=== PATIENT | female | born 1995 | race Caucasian/White ===

== ENCOUNTER 2017-03-10 18:20 | Emergency (ER) | payer OTHER ==
[2017-03-10 18:26] VITALS: BP 110/58; PULSE 87; RESP 20; TEMP 98.1
--- NOTE | 2017-03-10 18:47 | ED ---
General Adult HPI - General Chief complaint: Recheck/Abnormal Lab/Rx Stated complaint: MED REFILL Time Seen by Provider: 03/10/17 18:38 Source: patient, RN notes reviewed Mode of arrival: ambulatory Limitations: no limitations - History of Present Illness Initial comments: 21 yo female presents to the ER with cc of needing a refill of a Prozac prescription. patient states she was released from [facility] and states she has run out of her Prozac and does not have follow up for another prescription. Patient denies any suicidal or homicidal ideation. She states just needs refill.Patient denies any recent fever, chills, shortness of breath, chest pain , back pain, abdominal pain, nausea vomiting, numbness or tingling, dysuria or hematuria, constipation or diarrhea, headaches or visual changes, or any other current symptoms. - Related Data Previous Rx's Medication Instructions Recorded FLUoxetine HCL [PROzac] 20 mg PO DAILY #30 cap 02/03/17 Melatonin 3 mg PO HS #30 tablet 02/03/17 Nicotine 21Mg/24Hr Patch [Habitrol] 1 patch TRANSDERM DAILY #30 patch 02/03/17 Allergies Allergy/AdvReac Type Severity Reaction Status Date / Time No Known Allergies Allergy Verified 03/10/17 18:26 Review of Systems ROS Statement: Those systems with pertinent positive or pertinent negative responses have been documented in the HPI. ROS Other: All systems not noted in ROS Statement are negative. Past Medical History Past Medical History: No Reported History History of Any Multi-Drug Resistant Organisms: None Reported Past Surgical History: No Surgical Hx Reported Past Anesthesia/Blood Transfusion Reactions: No Reported Reaction Past Psychological History: Depression Smoking Status: Current every day smoker Past Alcohol Use History: Occasional Past Drug Use History: Prescription Drug Abuse - Past Family History mother Family Medical History: Cancer Additional Family Medical History / Comment(s): esophageal cancer General Exam Limitations: no limitations General appearance: alert, in no apparent distress ENT exam: Present: normal exam, mucous membranes moist Neck exam: Present: normal inspection. Absent: tenderness, meningismus, lymphadenopathy Respiratory exam: Present: normal lung sounds bilaterally. Absent: respiratory distress, wheezes, rales, rhonchi, stridor Cardiovascular Exam: Present: regular rate, normal rhythm, normal heart sounds. Absent: systolic murmur, diastolic murmur, rubs, gallop, clicks Neurological exam: Present: alert, oriented X3 Psychiatric exam: Absent: homicidal ideation, suicidal ideation Skin exam: Present: warm, dry, intact, normal color. Absent: rash Course Vital Signs 03/10/17 18:24 Temperature 98.1 F Pulse Rate 87 Respiratory 20 Rate Blood Pressure 110/58 O2 Sat by Pulse 99 Oximetry Medical Decision Making - Medical Decision Making 21 yo female presents with cc of needing a Prozac prescription. This time we discussion follow-up with [facility] for her prescription. We did go over her discharge instructions from throughout. We discussed return parameters all questions. Patient stated she understood and she is agreement plan. She'll be discharged. Disposition Clinical Impression: Encounter for medication refill Disposition: HOME SELF-CARE Condition: Stable Instructions: Fluoxetine (By mouth) Additional Instructions: Please use medication as discussed. Please follow up with family doctor if symptoms have not improved over the next two days. Please return to the emergency room if your symptoms increase or worsen or for any other concerns. Referrals: Justin Morales MD [STAFF PHYSICIAN] - 1-2 days Time of Disposition: 19:21
== END 2017-03-10 19:20 | disposition home or self-care (01) ==
LOC: EC 18:20
DX: Z76.0 Encounter for issue of repeat prescription (principal); F17.200 Nicotine dependence, unspecified, uncomplicated
CPT/HCPCS: 99281

== ENCOUNTER 2017-07-24 13:42 | Inpatient (IN) | payer MEDICAID, OTHER ==
--- NOTE | 2017-07-24 14:12 | ED ---
General Adult HPI - General Chief complaint: Psychiatric Symptoms Stated complaint: Mental Health Eval Time Seen by Provider: 07/24/17 13:59 Source: patient, RN notes reviewed Mode of arrival: ambulatory Limitations: no limitations - History of Present Illness Initial comments: Patient 21-year-old female presented to the emergency room today with a chief complaint of suicidal ideation. Patient does admit that she is homeless. She states she does not feel that anyone wants to help her. She does admit that she 's feeling hopeless and wants it all to end. She does admit that she's had thoughts of running out in front of traffic or grabbing a rope and hanging yourself. Patient does admit that she's had thoughts of suicide in the past. She states she is post appreciated counselor. She denies any homicidal thoughts or plans. Denies any other physical complaints. Patient denies any recent fever, chills, shortness of breath, chest pain, back pain, abdominal pain , nausea or vomiting, numbness or tingling, headaches or visual changes, or any other complaints. - Related Data Home Medications Medication Instructions Recorded Confirmed No Known Home Medications [No 07/24/17 07/24/17 Known Home Medications] Allergies Allergy/AdvReac Type Severity Reaction Status Date / Time No Known Allergies Allergy Verified 07/24/17 13:58 Review of Systems ROS Statement: Those systems with pertinent positive or pertinent negative responses have been documented in the HPI. ROS Other: All systems not noted in ROS Statement are negative. Past Medical History Past Medical History: No Reported History History of Any Multi-Drug Resistant Organisms: None Reported Past Surgical History: No Surgical Hx Reported Past Anesthesia/Blood Transfusion Reactions: No Reported Reaction Past Psychological History: Depression Smoking Status: Current every day smoker Past Alcohol Use History: None Reported Past Drug Use History: Prescription Drug Abuse - Past Family History mother Family Medical History: Cancer Additional Family Medical History / Comment(s): esophageal cancer General Exam - General Exam Comments Initial Comments: General: The patient is awake and alert, in no distress, and does not appear acutely ill. Eye: Pupils are equal, round and reactive to light, extra-ocular movements are intact. No nystagmus. There is normal conjunctiva bilaterally. No signs of icterus. Ears, nose, mouth and throat: There are moist mucous membranes and no oral lesions. Neck: The neck is supple, there is no tenderness or JVD. Cardiovascular: There is a regular rate and rhythm. No murmur, rub or gallop is appreciated. Respiratory: Lungs are clear to auscultation, respirations are non-labored, breath sounds are equal. No wheezes, stridor, rales, or rhonchi. Musculoskeletal: Normal ROM, no tenderness. Strength 5/5. Sensation intact. Neurological: A&O x 3. CN II-XII intact, There are no obvious motor or sensory deficits. Coordination appears grossly intact. Speech is normal. Skin: Skin is warm and dry and no rashes or lesions are noted. Psychiatric: Cooperative Limitations: no limitations Course Vital Signs 07/24/17 07/24/17 07/24/17 13:54 14:21 15:12 Temperature 97.8 F Pulse Rate 67 Respiratory 18 19 19 Rate Blood Pressure 101/60 O2 Sat by Pulse 99 Oximetry Medical Decision Making - Medical Decision Making Patient has been seen by mental health here in emergency room. Patient will be admitted to the hospital as well as sign herself in. - Lab Data Lab Results 07/24/17 07/24/17 Range/Units 14:20 14:20 Urine HCG, Qual Not Detected (Not Detectd) Urine Opiates Screen Not Detected (NotDetected) Ur Oxycodone Screen Not Detected (NotDetected) Urine Methadone Screen Not Detected (NotDetected) Ur Propoxyphene Screen Not Detected (NotDetected) Ur Barbiturates Screen Not Detected (NotDetected) U Tricyclic Antidepress Not Detected (NotDetected) Ur Phencyclidine Scrn Not Detected (NotDetected) Ur Amphetamines Screen Not Detected (NotDetected) U Methamphetamines Scrn Not Detected (NotDetected) U Benzodiazepines Scrn Not Detected (NotDetected) Urine Cocaine Screen Not Detected (NotDetected) U Marijuana (THC) Screen Not Detected (NotDetected) Disposition Clinical Impression: Suicidal ideation Disposition: TRANSFER TO PSYCH HOSP/UNIT Condition: Stable Is patient prescribed a controlled substance at d/c from ED?: No Referrals: Justin Morales MD [Primary Care Provider] - 1-2 days Time of Disposition: 15:48
[2017-07-24 14:41] LABS: Amphetamine Screen,Urine Not Detected (NotDetected); Barbiturate Screen,Urine Not Detected (NotDetected); Benzodiazepines Screen,Urine Not Detected (NotDetected); Cocaine Screen,Urine Not Detected (NotDetected); Methadone Screen, Urine Not Detected (NotDetected); Opiate Screen,Urine Not Detected (NotDetected); Oxycodone Screen, Urine Not Detected (NotDetected); Phencyclidine Screen,Urine Not Detected (NotDetected); Tricyclic Antidepressant,Urine Not Detected (NotDetected); Urn Cannabinoid Scrn Not Detected (NotDetected)
[2017-07-24] MEDS ORDERED: ACETAMINOPHEN TAB 325 MG TAB PO PRN (16:24)
[2017-07-24] MEDS ORDERED: MAGNESIUM HYDROXIDE 2,400 MG/10 ML CUP PO PRN (16:24)
[2017-07-24] MEDS ORDERED: MAG HYDROX/AL HYDROX/SIMETH 30 ML CUP PO PRN (16:24)
[2017-07-24 16:32] LABS: Appearance,Urine Clear (Clear); Bilirubin,Urine Negative (Negative); Blood,Urine Negative (Negative); Color,Urine Colorless; Glucose,Urine (UA) Negative (Negative); Ketones,Urine Negative (Negative); Leukocyte Esterase,Urine Negative (Negative); Nitrite,Urine Negative (Negative); Protein,Urine Negative (Negative); Specific Gravity,Urine 1.006 (1.001-1.035); Urobilinogen,Urine <2.0 mg/dL (<2.0)
[2017-07-24] MEDS: NICOTINE 21MG/24HR PATCH TRANSDERM SCH (16:55)
[2017-07-25 08:08] LABS: Basophils % (A) 1 %; Eosinophils # (A) 0.2 k/uL (0-0.7); Eosinophils % (A) 4 %; HCT 37.1 % (34.0-46.0); HGB 12.1 gm/dL (11.4-16.0); Lymphocytes # (A) 2.6 k/uL (1.0-4.8); Lymphocytes % (A) 41 %; MCHC 32.7 g/dL (31.0-37.0); MCV 94.8 fL (80.0-100.0); Mean Platelet Volume 7.7; Monocytes # (A) 0.3 k/uL (0-1.0); Monocytes % (A) 5 %; Neutrophils # (A) 3.1 k/uL (1.3-7.7); Neutrophils % (A) 48 %; Platelet Count 162 k/uL (150-450); RBC 3.91 m/uL (3.80-5.40); RDW 12.4 % (11.5-15.5); WBC 6.3 k/uL (3.8-10.6)
[2017-07-25 08:24] LABS: ALT 37 U/L (9-52); AST 32 U/L (14-36); Albumin 3.8 g/dL (3.5-5.0); Alkaline Phosphatase 54 U/L (38-126); Anion Gap 12 mmol/L; Blood Urea Nitrogen 17 mg/dL (7-17); Calcium 9.1 mg/dL (8.4-10.2); Carbon Dioxide 25 mmol/L (22-30); Chloride 106 mmol/L (98-107); Glucose 82 mg/dL (74-99); Sodium 143 mmol/L (137-145); Total Bilirubin 0.3 mg/dL (0.2-1.3); Total Protein 6.4 g/dL (6.3-8.2)
[2017-07-25] MEDS: NICOTINE 21MG/24HR PATCH TRANSDERM SCH (09:20)
--- NOTE | 2017-07-25 09:44 | CONS ---
CONSULTATION CHIEF COMPLAINT: A 21-year-old white female suicidal ideation. She is homeless. She does not feel that anyone wants to help her. She tried to hang herself apparently or she has thought about hanging herself or running out in front of traffic. She had thoughts of suicide in the past. No shortness of breath, chest pain, back pain, abdominal pain, nausea, vomiting, tingling. MEDICATIONS: Home medications negative. ALLERGIES: Negative. REVIEW OF SYSTEMS: Fourteen point review of systems negative except for mentioned in HPI. PAST PSYCH HISTORY: Of depression. SOCIAL HISTORY: Current everyday smoker. No alcohol. No illicit drugs. FAMILY HISTORY: Mother with cancer, esophageal cancer. PHYSICAL EXAM: VITAL SIGNS: Vital signs stable, afebrile. CARDIOVASCULAR S1, S2. LUNGS: Clear. GI: Soft. HEMATOLOGY: Negative Homans. PSYCH: Fair mood and affect. NEUROLOGIC: Alert and orient x3. VITAL SIGNS: Temperature is 97.8, pulse 67, respiratory 16 to 18, blood pressure 101/69, O2 99%. Urine drug screen negative. ASSESSMENT: Suicidal ideation. Otherwise she is medically clear. She has no significant medical problems. She is on no medicines at home. MMODL / IJN: [id number] /
[2017-07-25] MEDS: FLUoxetine HCL 10 MG CAP PO SCH (14:55)
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
[2017-07-25] MEDS ORDERED: DIVALPROEX ER 250 MG TAB.ER.24H PO SCH (21:00)
[2017-07-26] MEDS: FLUoxetine HCL 10 MG CAP PO SCH (08:23)
[2017-07-26] MEDS: NICOTINE 21MG/24HR PATCH TRANSDERM SCH (08:23)
[2017-07-26 10:14] LABS: Basophils % (A) 1 %; Eosinophils # (A) 0.2 k/uL (0-0.7); Eosinophils % (A) 3 %; HCT 41.3 % (34.0-46.0); HGB 13.5 gm/dL (11.4-16.0); Lymphocytes % (A) 32 %; MCHC 32.8 g/dL (31.0-37.0); MCV 94.6 fL (80.0-100.0); Mean Platelet Volume 7.7; Monocytes # (A) 0.3 k/uL (0-1.0); Monocytes % (A) 5 %; Neutrophils # (A) 3.7 k/uL (1.3-7.7); Neutrophils % (A) 59 %; Platelet Count 187 k/uL (150-450); RBC 4.36 m/uL (3.80-5.40); RDW 12.1 % (11.5-15.5); WBC 6.3 k/uL (3.8-10.6)
[2017-07-26 10:26] LABS: ALT 41 U/L (9-52); AST 44 U/L (14-36); Albumin 4.6 g/dL (3.5-5.0); Alkaline Phosphatase 61 U/L (38-126); Anion Gap 13 mmol/L; Blood Urea Nitrogen 13 mg/dL (7-17); Calcium 9.9 mg/dL (8.4-10.2); Carbon Dioxide 29 mmol/L (22-30); Chloride 102 mmol/L (98-107); Glucose 76 mg/dL (74-99); Potassium 4.7 mmol/L (3.5-5.1); Sodium 144 mmol/L (137-145); Total Bilirubin 0.5 mg/dL (0.2-1.3); Total Protein 7.6 g/dL (6.3-8.2)
[2017-07-26] MEDS ORDERED: FLUoxetine HCL 10 MG CAP ONE ×2 (10:35→10:42)
--- NOTE | 2017-07-26 13:23 | P.PN ---
Subjective Progress Note Date: 07/26/17 Principal diagnosis: Major depressive disorder recurrent moderate, lack of adequate housing I reviewed the medical record, interviewed the patient and a treatment and in plan with the treatment team. She presented to the psychiatric unit on 07/25/17 with complaints of depression and anxiety. She described several stressors the most significant of which is that she is homeless. She was living with her boyfriend in an apartment until March when they were evicted. She gave a vague and somewhat convoluted explanation about the reason they were evicted from the apartment (something about another landlord-tenant repeatedly called the police about their behavior). Complicating the eviction was her quitting her job and her boyfriend losing his Social Security. They lived with various friends, in their car and in shelters. She feels rejected by her family because well not provide her with assistance or correction. Her primary complaint currently is anxiety that she attributed to the of her mother, lack of income and lack of housing. She denies suicidal ideation, plan or intent. She feels sad and hopeless and helpless but denied feeling worthless. She denied feeling guilty did not express delusions of guilt. She denied difficulties with sleep. The covering psychiatrist prescribed Prozac 10 mg daily and initiated a trial of Depakote. The patient complained of nausea following the first dose of Depakote and requested to discontinue the medication. Objective - Vital Signs Vital signs: Vital Signs Temp 97.8 F 07/26/17 06:25 Pulse 93 07/26/17 06:25 Resp 16 07/26/17 06:25 BP 99/54 07/26/17 06:25 Pulse Ox 100 07/24/17 16:30 Intake & Output 07/25/17 07/26/17 07/26/17 18:59 06:59 18:59 Weight 54.1 kg - Psychiatric Psychiatric Comment(s): She presented as a neatly groomed and casually dressed young female who was pleasant on approach. She made eye contact and attended to the interview. She had no distinguishing features or prominent physical abnormalities. She had a bright facial expression. She is alert and oriented to person, place and time. She showed no abnormality of psychomotor activity. Her speech was spontaneous with normal rate, rhythm and volume. Affect was anxious but stable and appropriate. She denied suicidal ideation or wishes. She denied homicidal ideation. She complained of feeling hopeless and helpless battery with regard to her housing status. She denied feeling worthless. She did not express phobias, ideas reference, paranoid ideation or delusional thoughts. Her thinking was concrete but her associations were coherent, logical and goal directed. She denied hallucinations and did not appear to be responding to internal stimuli. - Labs CBC & Chem 7: 07/26/17 09:55 07/26/17 09:55 Assessment and Plan (1) Suicidal ideation Current Visit: Yes Status: Acute Code(s): R45.851 - SUICIDAL IDEATIONS SNOMED Code(s): 6764520 (2) Depression Current Visit: No Status: Acute Code(s): F32.9 - MAJOR DEPRESSIVE DISORDER, SINGLE EPISODE, UNSPECIFIED SNOMED Code(s): 31249388 Plan: Continue inpatient psychiatric hospitalization due to persistent mood and anxiety symptoms and psychosocial issues. Discontinue Depakote and increase Prozac to 20 mg daily. Encourage participation in therapeutic groups and activities. brush worker to assist her placement. Encourage participation in therapeutic groups and activities. Evaluate clinical status response to treatment daily basis.
[2017-07-27] MEDS: FLUoxetine HCL 20 MG CAP PO SCH (09:21)
[2017-07-27] MEDS: NICOTINE 21MG/24HR PATCH TRANSDERM SCH (09:21)
--- NOTE | 2017-07-27 13:25 | P.PN ---
Subjective Progress Note Date: 07/27/17 Principal diagnosis: Major depressive disorder recurrent moderate, lack of adequate housing I reviewed the medical record, interviewed the patient and a treatment and in plan with the treatment team. She remains anxious about her health housing situation. She stated that the nursing home had open beds yesterday but she does not know their open bed status today. She denied suicidal ideation, plan or intent. She denied difficulties with sleep. Objective - Vital Signs Vital signs: Vital Signs Temp 97.7 F 07/27/17 06:32 Pulse 88 07/27/17 06:32 Resp 12 07/27/17 06:32 BP 95/51 07/27/17 06:32 Pulse Ox 100 07/24/17 16:30 - Psychiatric Psychiatric Comment(s): She presented as a neatly groomed and casually dressed young female who was pleasant on approach. She made eye contact and attended to the interview. She had no distinguishing features or prominent physical abnormalities. She had a bright facial expression. She is alert and oriented to person, place and time. She showed no abnormality of psychomotor activity. Her speech was spontaneous with normal rate, rhythm and volume. Affect was anxious but stable and appropriate. She denied suicidal ideation or wishes. She denied homicidal ideation. She complained of feeling hopeless and helpless battery with regard to her housing status. She denied feeling worthless. She did not express phobias, ideas reference, paranoid ideation or delusional thoughts. Her thinking was concrete but her associations were coherent, logical and goal directed. She denied hallucinations and did not appear to be responding to internal stimuli. - Labs CBC & Chem 7: 07/26/17 09:55 07/26/17 09:55 Assessment and Plan Assessment: She appears less depressed and anxious time of discharge. Housing and income remaining prominent problem. (1) Suicidal ideation Current Visit: Yes Status: Acute Code(s): R45.851 - SUICIDAL IDEATIONS SNOMED Code(s): 1406670 (2) Depression Current Visit: No Status: Acute Code(s): F32.9 - MAJOR DEPRESSIVE DISORDER, SINGLE EPISODE, UNSPECIFIED SNOMED Code(s): 40239432 Plan: Continue inpatient psychiatric hospitalization until the social workers able to secure safe and appropriate housing. Continue Prozac to 20 mg daily. Encourage participation in therapeutic groups and activities. Encourage participation in therapeutic groups and activities. Evaluate clinical status response to treatment daily basis.
[2017-07-28 06:18] VITALS: RESP 16; TEMP 98.1
[2017-07-28 07:36] VITALS: BP 88/55; PULSE 60
[2017-07-28] MEDS: NICOTINE 21MG/24HR PATCH TRANSDERM SCH (08:18)
[2017-07-28] MEDS: FLUoxetine HCL 20 MG CAP PO SCH (08:18)
--- NOTE | 2017-07-28 12:27 | P.DS ---
Providers Date of admission: 07/24/17 15:55 Attending physician: Justin Acuna MD Consults: 07/24/17 16:24 Consult Physician Routine Consulting Provider: Justin Morales Consult Reason/Comments: Follow up H & P Do you want consulting provider notified?: Yes Primary care physician: Justin Morales - Discharge Diagnosis(es) (1) Suicidal ideation Current Visit: Yes Status: Resolved Priority: Low (2) Depression Current Visit: No Status: Chronic Priority: Low Hospital Course: The patient is a 21-year-old single female who presented to the psychiatric unit voluntarily with complaints of depression and suicidal ideation. She describes several stressors contributing to the depression and suicidal ideation but the most significant of which is that she is homeless and has no income. She was living with her boyfriend in apartment until March when they were evicted. She complained that another resident made several false accusations against them resulting in the police coming to the apartment several times. Complicating the eviction and adding to her stress was quitting her job and her boyfriend losing his Social Security disability income. Since they lost the apartment they lived with various friends, in a car and in shelters. She feels rejected by her family because her brother refused to give her assistance or longterm. Her boyfriend was able to obtain a bed in a longterm but she was unsuccessful since the female shelters were full. We provided a comprehensive biopsychosocial assessment. The lending consultant correctional therapy director completed initial physical exam and medical history. The correctional therapy director made no medical diagnoses and made no medical recommendations. This is her second admission to the psychiatric unit. We resumed her antidepressant, fluoxetine, and was prescribed following her last discharge. She reported an improvement in mood with the fluoxetine and the services provided by staff during this admission. She dutifully called the female shelters during the hospital stay. She participated in therapeutic groups and activities. She posed no management problem and required no emergent medication for behavioral problems or disturbances. On the day of discharge she secured a bed at [facility]. Her plan is to remain in the longterm for the maximum 30 days, obtained a temporary job with a local [employer] 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 At the time of discharge she presented as a neatly groomed and casually dressed young female who was pleasant on approach, maintained eye contact and attended to the interview. She had no distinguishing features or prominent physical abnormalities. She had a bright facial expression. She was alert and oriented to person, place and time. She showed no abnormality of psychomotor activity. She had no abnormal movements. Her speech was spontaneous with normal rate, rhythm and volume. Affect was bright, stable and appropriate. She denied suicidal ideation or wishes. She denied homicidal ideation. She denied such depressive cognitions as hopelessness, helplessness and worthlessness. She did not express phobias, ideas reference, paranoid ideation or delusional thoughts. Her thinking was abstract and associations were coherent and logical. She denied hallucinations and did not appear to be responding to internal stimuli. Patient Condition at Discharge: Stable Plan - Discharge Summary Discharge Rx Participant: No New Discharge Prescriptions: New FLUoxetine HCL [PROzac] 20 mg PO DAILY #28 cap Nicotine 21Mg/24Hr Patch [Habitrol] 1 patch TRANSDERM DAILY #7 patch Discharge Medication List FLUoxetine HCL [PROzac] 20 mg PO DAILY #28 cap 07/28/17 [Rx] Nicotine 21Mg/24Hr Patch [Habitrol] 1 patch TRANSDERM DAILY #7 patch 07/28/17 [ Rx] Follow up Appointment(s)/Referral(s): [facility] [Outside] - As Needed (walk-in intake assessment on 07.29.17 between 8:30am and 3:00pm) Justin Morales MD [Primary Care Provider] - 1-2 days Discharge Disposition: HOME SELF-CARE
== END 2017-07-28 13:15 | disposition home or self-care (01) | DRG 885 ==
LOC: EC 13:42 → 3MHU 15:55
PROVIDERS: ADMIT Psychiatry & Neurology Psychiatry; ATTEND Psychiatry & Neurology Psychiatry
DX: F33.1 Major depressive disorder, recurrent, moderate (principal); F50.2 Bulimia nervosa; R45.851 Suicidal ideations; F17.200 Nicotine dependence, unspecified, uncomplicated; F41.9 Anxiety disorder, unspecified; Z59.0 Homelessness; Z79.899 Other long term (current) drug therapy; Z80.0 Family history of malignant neoplasm of digestive organs; Z68.21 Body mass index [BMI] 21.0-21.9, adult; Z63.4 Disappearance and death of family member; F15.11 Other stimulant abuse, in remission
CPT/HCPCS: 80053; 80306; 81003; 81025; 82075; 84443; 85025; 99285